=== PATIENT | male | born 1930 | race Caucasian/White ===

== ENCOUNTER 2019-01-13 20:49 | Emergency (ER) | payer OTHER ==
[~2019-01-13] VITALS: Ht 177.8 cm; Wt 72.6 kg
[~2019-01-13 20:49] MED LIST: AQUAPHOR HEALIN50 GM TOP; ARICEPT 5 MG TAB5 MG PO; ARTIFICIAL TEA1 EACH OPHTHALMIC; ASPIRIN81 M2 PO; CENTANY30 GM TP; CHEST CONGESTI400 MG PO; CLARITIN10 MG PO; COZAAR 50 MG TA50 M2 PO; DEPAKOTE500 MG PO; DONEPEZIL HCL10 M1 PO; EUCERIN ECZEMA226 GM TOP; FLOMAX0.4 MG PO; HYDROCHLOROTHIA25 M2 PO; IBUPROFEN 200200 M1 PO; LASIX 20 MG TAB20 MG PO; LOSARTAN POTASS50 MG PO; MELATONIN3 MG PO; MIRALAX17 GM PO; NIFEDIPINE ER90 M1 PO; OXYCODONE HCL 55 MG PO; PAIN RELIEVER500 MG PO; PENICILLIN V P500 MG PO; POTASSIUM20 PO; ROBAXIN 750 MG750 M1 PO; SENNA-DOCUSATE1 EACH PO; SEROQUEL 25 MG25 M1 PO; TRAZODONE HCL50 MG PO; TRIPLE ANTIBIOT28 G2 TOP; TYLENOL EXTRA500 MG PO; VITAMIN D1000 UNI1 PO; ZOLOFT 50 MG TA50 M1 PO; ZOLOFT100 MG PO
[2019-01-14 01:16] VITALS: BP 167/93
== END 2019-01-14 01:17 | disposition home or self-care (01) ==
LOC: ER 20:49
DX: S00.83XA Contusion of other part of head, initial encounter (principal); W07.XXXA Fall from chair, initial encounter; Y93.89 Activity, other specified; Y92.89 Other specified places as the place of occurrence of the external cause; Y99.8 Other external cause status; I12.9 Hypertensive chronic kidney disease with stage 1 through stage 4 chronic kidney disease, or unspecified chronic kidney disease; N18.3 Chronic kidney disease, stage 3 (moderate); F32.9 Major depressive disorder, single episode, unspecified; G89.29 Other chronic pain; F03.90 Unspecified dementia, unspecified severity, without behavioral disturbance, psychotic disturbance, mood disturbance, and anxiety; Z91.041 Radiographic dye allergy status; Z88.8 Allergy status to other drugs, medicaments and biological substances

== ENCOUNTER 2019-08-07 20:01 | Emergency (ER) | payer OTHER ==
[~2019-08-07] VITALS: Ht 172.7 cm; Wt 72.6 kg
[2019-08-07 23:42] VITALS: BP 136/50
== END 2019-08-07 23:43 | disposition short-term general hospital (02) ==
LOC: ER 20:01
DX: S05.42XA Penetrating wound of orbit with or without foreign body, left eye, initial encounter (principal); S09.90XA Unspecified injury of head, initial encounter; I12.9 Hypertensive chronic kidney disease with stage 1 through stage 4 chronic kidney disease, or unspecified chronic kidney disease; N18.3 Chronic kidney disease, stage 3 (moderate); F03.90 Unspecified dementia, unspecified severity, without behavioral disturbance, psychotic disturbance, mood disturbance, and anxiety; F32.9 Major depressive disorder, single episode, unspecified; Z88.8 Allergy status to other drugs, medicaments and biological substances; W05.0XXA Fall from non-moving wheelchair, initial encounter; Y93.89 Activity, other specified; Y92.128 Other place in nursing home as the place of occurrence of the external cause; Y99.8 Other external cause status

== ENCOUNTER 2020-03-15 20:44 | Inpatient (IN) | payer OTHER ==
[~2020-03-15] VITALS: Ht 172.7 cm; Wt 52.3 kg
--- NOTE | ~2020-03-15 | HC ---
[facility] [place] [address] CONSULTATION Name: WOLF CHOI Room #: 360-P ADM IN M.R.#: [id number] Admission: 03/16/20 Attend Phys: Woody Phelps MD Discharge: Date of : [birth year] Report #: [id number] THIS REPORT FOR: cc: Shirley Boyle,Julieth Pedraza MD ~ CC: Woody Boyle REASON FOR CONSULTATION: Acute kidney injury. HISTORY OF PRESENT ILLNESS: Obtained from the medical chart, very limited given the patient's current mental status: This is an 89-year-old who was brought because of low oxygen saturation from his nursing facility. There is a mention that the patient is COVID-19 positive in the nursing facility. He has a history of hypertension and depression. He was found to have an elevated creatinine on arrival at 2.1; however, this has gone down to 1.2 as of this morning. He is currently maintained on D5 half normal saline with the appropriate urine output. He is hypernatremic. Unfortunately, further details are not available given the patient's current mental status. PAST MEDICAL HISTORY: Obtained from the medical chart. 1. Hypertension. 2. Depression. 3. Chronic kidney disease. 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 5. Dysphagia. PAST SURGICAL HISTORY: From the medical chart, left knee surgery. SOCIAL HISTORY: Currently resides at the [facility]. FAMILY HISTORY: Unobtainable given the patient's current mental status. REVIEW OF SYSTEMS: Unobtainable given the patient's current mental status. HOME MEDICATIONS: 1. Flomax. 2. Losartan. 3. Trazodone. 4. Docusate. 5. Amlodipine. PHYSICAL EXAMINATION: GENERAL: He is awake. VITAL SIGNS: Temperature is 37.6, pulse rate is 59, respiratory rate is 24, blood pressure is 148/83. [facility] [address] [place] [address] CONSULTATION Name: WOLF CHOI Room #: 360[facility]#: [id number] Admission: 03/16/20 Attend Phys: Woody Phelps MD Discharge: Date of : [birth year] Report #: [id number] HEAD AND NECK: No jugular venous distention. CHEST: Decreased air entry bilaterally. CARDIOVASCULAR: No rub detected. ABDOMEN: Soft, nontender. EXTREMITIES: Lower extremity, significant contractures. LABORATORY VALUES: From today reviewed. Sodium is 149, potassium is 3.1, phosphorus is 2.3, BUN is 60, creatinine is 1.2. White blood cell count is 10.5 and platelet is 140. ASSESSMENT, IMPRESSION AND PLAN: 1. Acute kidney injury, resolved. 2. Hypokalemia. 3. Hypernatremia. 4. Hypophosphatemia. 5. The patient's acute kidney injury had resolved with IV fluid. This was all due to dehydration. Continue with the D5W but increase the rate. 6. Replace potassium. 7. Replace phosphorus. 8. Continue to hold his blood pressure medication. 9. No further renal recommendation. By: [id number] Julieth Dsouza MD /nt
[2020-03-15 20:46] VITALS: BP 128/84
[2020-03-15 21:22] LABS: ABSOLUTE NEUTROPHILS 6.6 thou/uL (1.4-8.2); BASOPHILS 0.1 % (0.0-2.0); HEMATOCRIT 45.7 % (42.0-52.0); HEMOGLOBIN 15.2 gm/dL (14.0-18.0); LYMPHOCYTES 7.7 % (24.0-44.0); MCH 32.3 pg (26.0-34.0); MCHC 33.3 g/dL (28.0-37.0); MONOCYTES 9.5 % (1.0-8.0); PLATELET COUNT 149 thou/uL (150-400); POLYS 82.7 % (36.0-66.0); RBC 4.72 mil/uL (4.50-6.00); RDW 15.2 % (10.5-14.5)
[2020-03-15 22:10] LABS: CALCIUM 7.7 mg/dL (8.5-10.1); CREATININE 2.1 mg/dL (0.7-1.3); POTASSIUM 3.5 mmol/L (3.5-5.1)
[2020-03-15 22:16] LABS: BE(vivo) -0.4 mmol/L (-2 to +3); HCO3 22.7 mmol/L (22.0-26.0); PCO2 33.2 mmHg (35.0-45.0); PO2 78.9 mmHg (80.0-100.0); pH 7.452 (7.360-7.450); sO2 96.3 % (92.0-98.0)
[2020-03-15 22:20] LABS: ALBUMIN 2.4 g/dL (3.4-5.0); DIRECT BILIRUBIN 0.2 mg/dL (<0.1-0.2); TOTAL BILIRUBIN 0.8 mg/dL (0.2-1.0); TROPONIN-I 0.14 ng/mL (<0.06)
[2020-03-16] VITALS (7 sets, daily range): BP systolic 138–171; BP diastolic 79–97
[2020-03-16 01:48] LABS: URINE BILIRUBIN NEGATIVE (Negative); URINE BLOOD 3+ (Negative); URINE CLARITY SL CLOUDY; URINE COLOR YELLOW; URINE GLUCOSE-RANDOM* NEGATIVE (Negative); URINE KETONES NEGATIVE (Negative); URINE LEUKOCYTES-REFLEX 3+ (Negative); URINE NITRITE-REFLEX NEGATIVE (Negative); URINE PROTEIN (DIPSTICK) 2+ (Negative)
[2020-03-16 01:59] LABS: BACTERIA-REFLEX >30 Many /HPF (None Seen); CASTS None Seen /LPF (None Seen); CRYSTALS None Seen /LPF (None Seen); MUCUS 0-3 Light strn/LPF (None Seen); SQUAMOUS None Seen /LPF (0-3); URINE RBC >20 Many /HPF (0-2); URINE WBC-REFLEX >25 Many /HPF (0-5)
[2020-03-16] MEDS ORDERED: VITAMIN D31250 MCG PO (04:14)
[2020-03-16] MEDS ORDERED: TYLENOL325 M1 PO (04:17)
[2020-03-16] MEDS ORDERED: NORVASC 2.5 MG2.5 M1 PO (04:18)
[2020-03-16] MEDS ORDERED: COLACE100 MG PO (04:20)
[2020-03-16 17:04] LABS: BE(vivo) -3.4 mmol/L (-2 to +3); HCO3 19.9 mmol/L (22.0-26.0); PCO2 31.2 mmHg (35.0-45.0); PO2 86.9 mmHg (80.0-100.0); pH 7.422 (7.360-7.450); sO2 96.9 % (92.0-98.0)
[2020-03-17] VITALS (9 sets, daily range): BP systolic 130–175; BP diastolic 76–87
[2020-03-17 07:03] LABS: ABSOLUTE NEUTROPHILS 8.9 thou/uL (1.4-8.2); BASOPHILS 0.1 % (0.0-2.0); HEMATOCRIT 42.3 % (42.0-52.0); LYMPHOCYTES 7.8 % (24.0-44.0); MCH 32.5 pg (26.0-34.0); MCHC 33.1 g/dL (28.0-37.0); MONOCYTES 7.8 % (1.0-8.0); PLATELET COUNT 140 thou/uL (150-400); POLYS 84.3 % (36.0-66.0); RBC 4.31 mil/uL (4.50-6.00); RDW 15.7 % (10.5-14.5); WBC 10.5 thou/uL (4.0-11.0)
[2020-03-17 07:15] LABS: ALBUMIN 2.2 g/dL (3.4-5.0); CALCIUM 8.2 mg/dL (8.5-10.1); CREATININE 1.2 mg/dL (0.7-1.3); PHOSPHORUS 2.3 mg/dL (2.5-4.9); POTASSIUM 3.1 mmol/L (3.5-5.1); TOTAL BILIRUBIN 0.5 mg/dL (0.2-1.0); TOTAL PROTEIN 5.6 g/dL (6.4-8.2)
[2020-03-17 23:13] LABS: CREATININE 1.2 mg/dL (0.7-1.3); MAGNESIUM 2.5 mg/dL (1.8-2.4); POTASSIUM 3.4 mmol/L (3.5-5.1)
[2020-03-18 03:41] VITALS: BP 166/83
[2020-03-18 06:15] LABS: ABSOLUTE NEUTROPHILS 8.6 thou/uL (1.4-8.2); BASOPHILS 0.2 % (0.0-2.0); EOSINOPHILS 0.1 % (0.0-3.0); HEMATOCRIT 41.9 % (42.0-52.0); HEMOGLOBIN 13.9 gm/dL (14.0-18.0); LYMPHOCYTES 7.4 % (24.0-44.0); MCH 32.5 pg (26.0-34.0); MCHC 33.2 g/dL (28.0-37.0); MCV 97.8 fL (80.0-100.0); MONOCYTES 8.2 % (1.0-8.0); PLATELET COUNT 164 thou/uL (150-400); POLYS 84.1 % (36.0-66.0); RBC 4.28 mil/uL (4.50-6.00); RDW 15.5 % (10.5-14.5); WBC 10.2 thou/uL (4.0-11.0)
[2020-03-18 06:31] LABS: CALCIUM 8.3 mg/dL (8.5-10.1); CREATININE 1.1 mg/dL (0.7-1.3); MAGNESIUM 2.4 mg/dL (1.8-2.4); PHOSPHORUS 1.7 mg/dL (2.5-4.9); POTASSIUM 3.4 mmol/L (3.5-5.1)
--- NOTE | 2020-03-18 07:45 | EKG ---
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: leola : 1930 Requested By: Liz Fu Order Number: [id number] MD: Frank Nava Measurements Intervals [place] Rate: 82 P: 67 NV: 225 QRS: -65 QRSD: 119 T: 86 QT: 430 QTc: 503 Interpretive Statements Sinus rhythm Atrial premature complexes Prolonged NV interval Incomplete RBBB and LAFB Nonspecific T abnormalities, lateral leads No previous ECG available for comparison Electronically Signed On 03-18-2020 7:45:11 CDT by Frank Nava [email or web address] <ELECTRONICALLY SIGNED> By: Frank Nava MD, [facility] 03/18/20 0745 11 11 Frank Nava MD, [facility] /EPI
[2020-03-18 07:55] VITALS: BP 161/98
--- NOTE | 2020-03-18 10:48 | EKG ---
[facility] [place] [address] ELECTROCARDIOGRAM REPORT Name: ALYVALDOWOLF KENNEDY Room #: 360-P ADM IN M.R.#: [id number] Admission: 03/16/20 Attend Phys: Ольга Chi MD Discharge: Date of : [birth year] Report #: [id number] THIS REPORT FOR: cc: Shirley Boyle,Shirley Molina,Emory Vidal MD ~ THIS REPORT FOR: //name// [facility] Test Date: 2020-03-18 Test Time: 08:27:50 Pat Name: WOLF CHOI Department: Room: 360 P Gender: M Quality Assurance Technician: HUSSEIN : 1930 Requested By: Moni Arroyo Order Number: [id number] MD: Emory Cisneros Measurements Intervals [place] Rate: 79 P: [place]: QRS: -54 QRSD: 135 T: -11 QT: 486 QTc: 558 Interpretive Statements Sinus with first degree av block Frequent PVC Baseline wander in lead(s) III,V6 Compared to ECG 03/15/2020 21:12:04 Electronically Signed On 03-18-2020 10:48:14 CDT by Emory Cisneros [email or web address] <ELECTRONICALLY SIGNED> By: Emory Cisneros MD 03/18/20 1048 6 6 Emory Cisneros MD /EPI
[2020-03-18 11:20] VITALS: BP 139/79
[2020-03-18 12:33] LABS: HEMOGLOBIN 13.5 gm/dL (14.0-18.0); MCH 33.1 pg (26.0-34.0); MCHC 33.8 g/dL (28.0-37.0); MCV 97.7 fL (80.0-100.0); RBC 4.1 mil/uL (4.50-6.00); RDW 15.8 % (10.5-14.5)
[2020-03-18 12:48] LABS: INR 1.1; PROTIME 11.2 Seconds (9.3-11.4)
[2020-03-18 17:36] VITALS: BP 125/93
[2020-03-18 18:04] LABS: ALBUMIN 2.1 g/dL (3.4-5.0); DIRECT BILIRUBIN 0.1 mg/dL (<0.1-0.2); TOTAL BILIRUBIN 0.4 mg/dL (0.2-1.0); TOTAL PROTEIN 5.5 g/dL (6.4-8.2)
[2020-03-18 19:38] VITALS: BP 179/83
[2020-03-18 19:56] VITALS: BP 156/99
[2020-03-19 01:25] VITALS: BP 146/87
[2020-03-19 04:39] VITALS: BP 143/90
[2020-03-19 06:03] LABS: ABSOLUTE NEUTROPHILS 5.2 thou/uL (1.4-8.2); BASOPHILS 0.1 % (0.0-2.0); HEMATOCRIT 36.5 % (42.0-52.0); HEMOGLOBIN 12.3 gm/dL (14.0-18.0); LYMPHOCYTES 9.5 % (24.0-44.0); MCH 32.7 pg (26.0-34.0); MCHC 33.8 g/dL (28.0-37.0); MCV 96.7 fL (80.0-100.0); MONOCYTES 11.9 % (1.0-8.0); PLATELET COUNT 153 thou/uL (150-400); POLYS 78.5 % (36.0-66.0); RBC 3.77 mil/uL (4.50-6.00); RDW 15.5 % (10.5-14.5); WBC 6.7 thou/uL (4.0-11.0)
[2020-03-19 06:38] LABS: ALBUMIN 1.9 g/dL (3.4-5.0); CALCIUM 7.6 mg/dL (8.5-10.1); CREATININE 0.9 mg/dL (0.7-1.3); PHOSPHORUS 2.2 mg/dL (2.5-4.9); POTASSIUM 3.1 mmol/L (3.5-5.1); TOTAL BILIRUBIN 0.5 mg/dL (0.2-1.0); TOTAL PROTEIN 5.1 g/dL (6.4-8.2)
--- NOTE | 2020-03-19 07:25 | EKG ---
[facility] [place] [address] [place] [address] ELECTROCARDIOGRAM REPORT Name: ALYDYLONWOLF SOARES Room #: 360-P ADM IN M.R.#: [id number] Admission: 03/16/20 Attend Phys: Ольга Chi MD Discharge: Date of : [birth year] Report #: [id number] THIS REPORT FOR: cc: Shirley Boyle,Shirley La,Frank Newman MD [facility] ~ THIS REPORT FOR: //name// [facility] Test Date: 2020-03-17 Test Time: 21:40:31 Pat Name: WOLF CHOI Department: Room: 360 P Gender: M Facility Manager Histology: HUSSEIN : 1930 Requested By: Moni Arroyo Order Number: [id number] MD: Frank Nava Measurements Intervals [place] Rate: 94 P: -29 CA: 234 QRS: -76 QRSD: 114 T: 32 QT: 415 QTc: 520 Interpretive Statements Sinus rhythm Multiple ventricular premature complexes Prolonged CA interval Left anterior fascicular block Incomplete right bundle branch block Borderline prolonged QT interval Compared to ECG 03/15/2020 21:12:04 Ventricular premature complex(es) now present Atrial premature complex(es) no longer present Incomplete right bundle-branch block no longer present Electronically Signed On 03-19-2020 7:24:59 CDT by Frank Nava [email or web address] <ELECTRONICALLY SIGNED> By: Frank Nava MD, [facility] 03/19/20723 39 39 Frank Nava MD, [facility] /EPI
[2020-03-19 08:24] VITALS: BP 142/88
[2020-03-19 11:35] VITALS: BP 138/89
[2020-03-19 15:57] VITALS: BP 117/74
[2020-03-19 19:24] VITALS: BP 1602/93
[2020-03-20 03:56] VITALS: BP 137/99
[2020-03-20 08:00] VITALS: BP 106/72
[2020-03-20 08:38] LABS: HEMATOCRIT 39.7 % (42.0-52.0); HEMOGLOBIN 13.2 gm/dL (14.0-18.0); MCH 32.2 pg (26.0-34.0); MCHC 33.3 g/dL (28.0-37.0); MCV 96.7 fL (80.0-100.0); PLATELET COUNT 169 thou/uL (150-400); RBC 4.11 mil/uL (4.50-6.00); RDW 15.3 % (10.5-14.5); WBC 6.4 thou/uL (4.0-11.0)
[2020-03-20 08:53] LABS: CALCIUM 7.8 mg/dL (8.5-10.1); CREATININE 0.9 mg/dL (0.7-1.3); MAGNESIUM 1.9 mg/dL (1.8-2.4); POTASSIUM 3.1 mmol/L (3.5-5.1); TOTAL BILIRUBIN 0.6 mg/dL (0.2-1.0); TOTAL PROTEIN 5.3 g/dL (6.4-8.2)
[2020-03-20 11:51] LABS: ABSOLUTE NEUTROPHILS 4.6 thou/uL (1.4-8.2); ATYPICAL LYMPHS 2 %
[2020-03-20 11:52] LABS: ANISOCYTOSIS SLIGHT; BURR CELLS FEW; POIKILOCYTOSIS SLIGHT
[2020-03-20 12:03] VITALS: BP 126/86
[2020-03-20 16:06] VITALS: BP 152/77
[2020-03-21 05:00] VITALS: BP 148/96
[2020-03-21 08:01] VITALS: BP 152/91
[2020-03-21 11:24] VITALS: BP 140/76
[2020-03-21 15:41] VITALS: BP 147/76
[2020-03-21 20:25] VITALS: BP 147/76
[2020-03-22 04:15] VITALS: BP 147/79
[2020-03-22 08:20] VITALS: BP 124/68
[2020-03-22 11:29] LABS: HEMATOCRIT 40.3 % (42.0-52.0); HEMOGLOBIN 13.4 gm/dL (14.0-18.0); MCH 32.3 pg (26.0-34.0); MCHC 33.4 g/dL (28.0-37.0); MCV 96.8 fL (80.0-100.0); RBC 4.17 mil/uL (4.50-6.00); RDW 15.4 % (10.5-14.5)
[2020-03-22 11:31] VITALS: BP 155/93
[2020-03-22 12:08] LABS: ALBUMIN 1.9 g/dL (3.4-5.0); CALCIUM 7.5 mg/dL (8.5-10.1); CREATININE 0.7 mg/dL (0.7-1.3); MAGNESIUM 1.9 mg/dL (1.8-2.4); PHOSPHORUS 2.2 mg/dL (2.5-4.9); POTASSIUM 3.5 mmol/L (3.5-5.1); TOTAL BILIRUBIN 0.5 mg/dL (0.2-1.0); TOTAL PROTEIN 5.1 g/dL (6.4-8.2)
[2020-03-22 14:49] LABS: ABSOLUTE NEUTROPHILS 3.3 thou/uL (1.4-8.2); ANISOCYTOSIS 1+
[2020-03-22 14:50] LABS: PLATELET COUNT 195 thou/uL (150-400)
[2020-03-22 15:45] VITALS: BP 190/106
[2020-03-22] MEDS ORDERED: CEFDINIR300 MG PO (17:35)
[2020-03-22] MEDS ORDERED: ENOXAPARIN60 MG/0.1 SUBQ (17:38)
[2020-03-22] MEDS ORDERED: SOLU-MEDRO40 MG/1 M1 IV PUSH (17:42)
[2020-03-22] MEDS ORDERED: HUMALOG100 UNIT/1 SUBQ (17:43)
[2020-03-22] MEDS ORDERED: LIDOPATCH1 EACH TRANSDERM (17:43)
[2020-03-22 17:57] VITALS: BP 147/85
== END 2020-03-22 18:13 | DRG 177 ==
LOC: ER 20:44 → EROBS 03-16 02:11 → 3W 03-16 02:11
PROVIDERS: Emergency Medicine; Nurse Practitioner Family; ADMIT Internal Medicine; ATTEND Internal Medicine
DX: U07.1 COVID-19 (principal); J96.01 Acute respiratory failure with hypoxia; E43 Unspecified severe protein-calorie malnutrition; J12.89 Other viral pneumonia; G93.41 Metabolic encephalopathy; N17.9 Acute kidney failure, unspecified; N39.0 Urinary tract infection, site not specified; E87.0 Hyperosmolality and hypernatremia; F02.81 Dementia in other diseases classified elsewhere, unspecified severity, with behavioral disturbance; M48.50XA Collapsed vertebra, not elsewhere classified, site unspecified, initial encounter for fracture; F32.9 Major depressive disorder, single episode, unspecified; N18.3 Chronic kidney disease, stage 3 (moderate); G89.29 Other chronic pain; E83.39 Other disorders of phosphorus metabolism; N40.0 Benign prostatic hyperplasia without lower urinary tract symptoms; I12.9 Hypertensive chronic kidney disease with stage 1 through stage 4 chronic kidney disease, or unspecified chronic kidney disease; G30.9 Alzheimer's disease, unspecified; R13.12 Dysphagia, oropharyngeal phase; L89.221 Pressure ulcer of left hip, stage 1; L89.141 Pressure ulcer of left lower back, stage 1; E11.22 Type 2 diabetes mellitus with diabetic chronic kidney disease; E87.6 Hypokalemia; L89.212 Pressure ulcer of right hip, stage 2; Z88.7 Allergy status to serum and vaccine; Z88.3 Allergy status to other anti-infective agents; Z79.899 Other long term (current) drug therapy
CPT/HCPCS: 10879

== ENCOUNTER 2020-06-16 18:20 | Emergency (ER) | payer OTHER ==
[~2020-06-16] VITALS: Ht 177.8 cm; Wt 65.8 kg
[~2020-06-16 18:20] MED LIST changes: +CEFDINIR300 MG PO; +COLACE100 MG PO; +ENOXAPARIN60 MG/0.1 SUBQ; +HUMALOG100 UNIT/1 SUBQ; +LIDOPATCH1 EACH TRANSDERM; +NORVASC 2.5 MG2.5 M1 PO; +SOLU-MEDRO40 MG/1 M1 IV PUSH; +TYLENOL325 M1 PO; +VITAMIN D31250 MCG PO
[2020-06-16 18:50] LABS: ABSOLUTE NEUTROPHILS 4.6 thou/uL (1.4-8.2); BASOPHILS 0.6 % (0.0-2.0); EOSINOPHILS 1.8 % (0.0-3.0); HEMATOCRIT 40.3 % (42.0-52.0); HEMOGLOBIN 13.2 gm/dL (14.0-18.0); LYMPHOCYTES 20.5 % (24.0-44.0); MCH 32.2 pg (26.0-34.0); MCHC 32.8 g/dL (28.0-37.0); MCV 98.2 fL (80.0-100.0); MONOCYTES 10.6 % (1.0-8.0); PLATELET COUNT 234 thou/uL (150-400); POLYS 66.5 % (36.0-66.0); RBC 4.11 mil/uL (4.50-6.00); RDW 15.4 % (10.5-14.5); WBC 6.9 thou/uL (4.0-11.0)
[2020-06-16 19:01] LABS: ANION GAP 12 mmol/L (7-16); BUN 41 mg/dL (7-18); CHLORIDE 110 mmol/L (98-107); CO2 25 mmol/L (21-32); CREATININE 1.2 mg/dL (0.7-1.3); GLUCOSE 108 mg/dL (74-106); POTASSIUM 4.4 mmol/L (3.5-5.1); SODIUM 147 mmol/L (136-145)
[2020-06-16 19:03] LABS: APTT 28.7 Seconds (24.5-32.8); INR 1.1; PROTIME 10.9 Seconds (9.3-11.4)
[2020-06-16 19:12] LABS: ALBUMIN 3.2 g/dL (3.4-5.0); LIPASE 38 U/L (73-393); SGOT 28 U/L (15-37); SGPT 37 U/L (30-65); TOTAL BILIRUBIN 0.6 mg/dL (0.2-1.0); TOTAL PROTEIN 6.8 g/dL (6.4-8.2); TROPONIN-I <0.06 ng/mL (<0.06)
[2020-06-16 20:34] LABS: URINE BILIRUBIN NEGATIVE (Negative); URINE BLOOD 1+ (Negative); URINE CLARITY CLEAR; URINE COLOR YELLOW; URINE GLUCOSE-RANDOM* NEGATIVE (Negative); URINE KETONES NEGATIVE (Negative); URINE LEUKOCYTES-REFLEX 1+ (Negative); URINE NITRITE-REFLEX NEGATIVE (Negative); URINE PROTEIN (DIPSTICK) TRACE (Negative); URINE SPECIFIC GRAVITY >= 1.030 (1.005-1.035); URINE UROBILINOGEN 0.2 E.U./dl (0.2-1.0)
[2020-06-16 20:39] LABS: BACTERIA-REFLEX >30 Many /HPF (None Seen); CRYSTALS None Seen /LPF (None Seen)
[2020-06-16 20:40] LABS: URINE RBC 0-2 Rare /HPF (0-2)
[2020-06-16 20:41] LABS: CASTS None Seen /LPF (None Seen); SQUAMOUS None Seen /LPF (0-3); URINE WBC-REFLEX >25 Many /HPF (0-5); WBC CLUMPS Few (None Seen); YEAST-REFLEX Present (None Seen)
[2020-06-16] MEDS ORDERED: KEFLEX500 M2 PO (20:42)
[2020-06-16] MEDS ORDERED: DIFLUCAN150 MG PO (21:08)
[2020-06-16 22:25] VITALS: BP 133/96
--- NOTE | 2020-06-17 07:35 | EKG ---
[facility] [address] [address] ELECTROCARDIOGRAM REPORT Name: STEPHWOLF [id number] Admission: 06/16/20 Attend Phys: Discharge: 06/16/20 Date of : [birth year] Report #: [id number] THIS REPORT FOR: cc: Shirley Boyle,Shirley La,Frank Newman MD [facility] ~ THIS REPORT FOR: //name// [facility] ED Test Date: 2020-06-16 Test Time: 19:28:53 Pat Name: WOLF CHOI Department: Room: Gender: Human Resources Safety Manager: maxim preston : 1930 Requested By: Kamille Rodriguez Order Number: [id number] MD: Frank Nava Measurements Intervals [place] Rate: 65 P: -72 RI: 253 QRS: -55 QRSD: 96 T: 42 QT: 445 QTc: 463 Interpretive Statements Sinus rhythm Atrial and ventricular premature complexes Prolonged RI interval Left anterior fascicular block Compared to ECG 03/18/2020 08:27:50 Atrial premature complex(es) now present Electronically Signed On 06-17-2020 7:35:45 CDT by Frank Nava [email or web address] <ELECTRONICALLY SIGNED> By: Frank Nava MD, FACC 06/17/20 0735 27 27 Frank Nava MD, FACC /EPI
== END 2020-06-16 22:27 | disposition home or self-care (01) ==
LOC: ER 18:20
PROVIDERS: Physician Assistant
DX: R41.82 Altered mental status, unspecified (principal); I12.9 Hypertensive chronic kidney disease with stage 1 through stage 4 chronic kidney disease, or unspecified chronic kidney disease; N18.30 Chronic kidney disease, stage 3 unspecified; Z79.899 Other long term (current) drug therapy; Z79.82 Long term (current) use of aspirin; Z88.8 Allergy status to other drugs, medicaments and biological substances